=== PATIENT | male | born 1990 | race American Indian/Alaskan Native ===

== ENCOUNTER 2019-11-21 18:48 | Emergency (ER) | payer SELFPAY ==
[2019-11-21 20:01] VITALS: BP 120/59
--- NOTE | 2019-11-21 20:06 | Emergency Department Report ---
Blank Doc - Documentation Documentation: 29-year-old male that presents with right flank pain. This initial assessment/diagnostic orders/clinical plan/treatment(s) is/are subject to change based on patient's health status, clinical progression and re- assessment by fellow clinical providers in the ED. Further treatment and workup at subsequent clinical providers discretion. Patient/guardians urged not to elope from the ED as their condition may be serious if not clinically assessed and managed. Initial orders include: 1- Patient sent to [facility] for further evaluation and treatment 2- UA
[2019-11-21 21:23] LABS: Mucus,Urine 1+ /HPF
[2019-11-21 21:25] LABS: Bilirubin,Urine Negative (Negative); Blood,Urine Negative (Negative); Color,Urine Yellow (Yellow); WBC,Urine < 182.0 /HPF (0.0-6.0)
[2019-11-21] MEDS ORDERED: LIDOCAINE-MPF (1%) 10 MG/1 ML VIAL 5 ML INFILTRATI ONE (21:55)
--- NOTE | 2019-11-21 21:58 | Emergency Department Report ---
ED Dysuria HPI - HPI Chief Complaint: Back Pain/Injury Stated Complaint: PAIN WITH URNIATION Time Seen by Provider: 11/21/19 20:05 Duration: 2 Days Location of Discomfort: Flank Severity: Moderate Symptoms: Dysuria: Yes, Frequency: Yes, Suprapubic Pain: No, Flank Pain: Yes, Fever: No, Hematuria: Yes, Abdominal Pain: No, Previous UTI's: No Other History: This is a 29-year-old male presents the ED complaining of right- sided flank pain with nausea for the past 3 days. Patient also admits frequency, dysuria. Patient denies penile discharge bleeding or any other abdominal complaints ED Review of Systems ROS: Stated complaint: PAIN WITH URNIATION Other details as noted in HPI Comment: All other systems reviewed and negative ED Past Medical Hx - Past Medical History Previous Medical History?: No - Surgical History Past Surgical History?: No - Social History Smoking Status: Current Every Day Smoker Substance Use Type: None Dysuria Exam - Exam General: Vital signs noted. No distress. Alert and acting appropriately. Exam: Yes Moist Mucous Membranes, Yes CVA Tenderness, No Abdominal Tenderness, No Rigidity or Guarding Labs: Lab Results 11/21/19 Range/Units 20:16 Urine Color Yellow (Yellow) Urine Turbidity Clear (Clear) Urine pH 7.0 (5.0-7.0) Ur Specific [place] 1.010 (1.003-1.030) Urine Protein 30 mg/dl (Negative) mg/dL Urine Glucose (UA) Negative (Negative) mg/dL Urine Ketones Negative (Negative) mg/dL Urine Blood Negative (Negative) Urine Nitrite Negative (Negative) Ur Reducing Substances Not Reportable Urine Bilirubin Negative (Negative) Urine Ictotest Not Reportable Urine Urobilinogen 2.0 (<2.0) mg/dL Ur Leukocyte Esterase Moderate (Negative) Urine WBC (Auto) < 182.0 H (0.0-6.0) /HPF Urine RBC (Auto) 10.0 (0.0-6.0) /HPF Urine Mucus 1+ /HPF ED Course Vital Signs 11/21/19 11/21/19 19:25 20:09 Temperature 98.5 F 98.8 F Pulse Rate 75 66 Respiratory 18 18 Rate Blood Pressure 120/59 120/59 O2 Sat by Pulse 100 100 Oximetry ED Medical Decision Making - Medical Decision Making 39-year-old male presents with a urinary tract infection flank pain ED course: Patient received an antibiotic dose and Motrin during ED stay Urinalysis is positive for WBC, blood normal otherwise, will treat with 1 dose of Rocephin in the ED s. I discussed this findings with the patient. I discussed with patient if he is worried about STDs to make sure he goes to the health department or his outside medical clinic for STD screening Patient is in no acute distress, patient also has on instructions were given to him. He had on exam for ED stay. Discussed follow-up with her primary care physician. Referral was given to patient. Critical care attestation.: If time is entered above; I have spent that time in minutes in the direct care of this critically ill patient, excluding procedure time. ED Disposition Clinical Impression: Acute cystitis with hematuria, Acute flank pain Disposition: TO HOME OR SELFCARE Is pt being admited?: No Does the pt Need Aspirin: No Condition: Stable Instructions: Flank Pain (ED), Urinary Tract Infection in Men (ED) Additional Instructions: Make sure to follow up with the primary care physician as discussed. Take all your medications as you've been prescribed. If you have any worsening symptoms or develop new symptoms please return to ED immediately. Referrals: [facility] [Outside] - 3-5 Days [facility] [Outside] - 3-5 Days [facility] [Outside] - 3-5 Days Forms: Work/School Release Form Time of Disposition: 21:59
== END 2019-11-21 23:17 | disposition home or self-care (01) ==
LOC: ED 18:48
DX: N30.01 Acute cystitis with hematuria (principal); F17.200 Nicotine dependence, unspecified, uncomplicated
CPT/HCPCS: 81001; 87086; 96372; 99283; J0696